=== PATIENT | male | born 1990 | race Two or more races ===

== ENCOUNTER 2018-04-23 13:00 | Emergency (ER) | payer OTHER ==
[2018-04-23 13:21] LABS: BASOPHIL (%) 0.3 % (0-1); EOSINOPHIL (%) 1.2 % (0-5); EOSINOPHIL COUNT 0.1 K/uL (0-0.3); HEMATOCRIT 41.2 % (38.0-50.0); HEMOGLOBIN 13.9 G/DL (12.5-16.6); IMMATURE GRANULOCYTE (%) 0.3 % (0.0-0.7); LYMPHOCYTE (%) 20.8 % (15-42); LYMPHOCYTE COUNT 1.9 K/uL (1.0-2.8); MCH 32.2 PG (29.0-34.0); MCHC 33.7 G/DL (30.0-36.0); MCV 95.4 FL (86-99); MONOCYTE (%) 11.6 % (3-12); MONOCYTE COUNT 1.1 K/uL (0-0.8); NEUTROPHIL (%) 65.8 % (45-76); NEUTROPHIL COUNT 5.9 K/uL (1.8-6.4); PLATELET COUNT 189 K/uL (156-360); RBC DIS.WIDTH-CV 11.6 % (11.8-14.6); RBC DIS.WIDTH-SD 40.5 % (39-53); RED BLOOD COUNT 4.32 M/uL (4.00-5.50)
[2018-04-23 13:29] LABS: AMYLASE 49 IU/L (1-118); CHLORIDE 101 mEq/L (99-109)
[2018-04-23 13:30] LABS: POTASSIUM 3.7 mEq/L (3.7-5.4); SODIUM 139 mEq/L (136-147)
[2018-04-23 13:31] LABS: GLUCOSE 113 mg/dL (70-99)
[2018-04-23 13:34] LABS: SERUM ETHYL ALCOHOL < 10 mg/dL
[2018-04-23 13:35] LABS: GFR ESTIMATE (CALCULATED) > 59 mL/min/ (58.99-99999)
[2018-04-23 13:36] LABS: UREA NITROGEN (BUN) 13 mg/dL (9-23)
[2018-04-23 13:38] LABS: LIPASE 4 U/L (1.0-51.0)
== END 2018-04-23 16:19 ==
LOC: TRA 13:00
PROVIDERS: Emergency Medicine
PROC: 3E0234Z Introduction of Serum, Toxoid and Vaccine into Muscle, Percutaneous Approach (ICD-10-PCS; principal; 2018-04-23)
DX: S11.90XA Unspecified open wound of unspecified part of neck, initial encounter (principal); S31.000A Unspecified open wound of lower back and pelvis without penetration into retroperitoneum, initial encounter; X99.9XXA Assault by unspecified sharp object, initial encounter; Y92.149 Unspecified place in prison as the place of occurrence of the external cause; Y07.9 Unspecified perpetrator of maltreatment and neglect; Z23 Encounter for immunization
CPT/HCPCS: 70498; 71260; 74177; 80048; 81003; 82150; 83690; 85025; 86850; 86900; 86901; 99281; 99285; G0480; J0690; J3010